=== PATIENT | female | born 1985 | race Caucasian/White ===

== ENCOUNTER 2023-10-11 13:04 | Inpatient (IN) | payer OTHER ==
[2023-10-11 14:24] VITALS: BMI 24.3
[2023-10-11] MEDS ORDERED: NICOTINE POLACRILEX 2 MG GUM BUC PRN (14:50)
[2023-10-11] MEDS ORDERED: BENZONATATE 200 MG CAPSULE PO PRN (14:50)
[2023-10-11] MEDS ORDERED: DICYCLOMINE HCL 10 MG CAPSULE PO PRN (14:50)
[2023-10-11] MEDS ORDERED: ACETAMINOPHEN 325 MG TABLET (FP) PO PRN (14:50)
[2023-10-11] MEDS ORDERED: LOPERAMIDE HCL 2 MG CAPSULE PO PRN (14:50)
[2023-10-11] MEDS ORDERED: BISMUTH SUBSALICYLATE 524 MG/30 ML PO PRN (14:50)
[2023-10-11] MEDS ORDERED: IBUPROFEN 400 MG TABLET (FP) PO PRN (14:50)
[2023-10-11] MEDS ORDERED: P-EPHED 60MG/TRIPROLIDI 2.5MG TABLET PO PRN (14:50)
[2023-10-11] MEDS ORDERED: guaiFENesin 600 MG TABLET.ER (FP) PO PRN (14:50)
[2023-10-11] MEDS ORDERED: MAGNESIUM HYDROX 2400MG/30ML ORAL SUSPENSION 30 ML CUP PO PRN (14:50)
[2023-10-11] MEDS ORDERED: BENZOCAINE/MENTHOL (CHLORASEPTIC ) LOZENGE MM PRN (14:50)
[2023-10-11] MEDS ORDERED: POLYETHYLENE GLYCOL (HEALTHYLAX) 3350 17 GM PACKET PO PRN (14:50)
[2023-10-11] MEDS ORDERED: NICOTINE POLACRILEX 2 MG LOZENGE BC PRN (14:50)
[2023-10-11] MEDS ORDERED: MAG HYDROX/AL HYDROX/SIMETH 30 ML UNIT-DOSE CUP PO PRN (14:50)
[2023-10-11] MEDS: chlordiazePOXIDE HCL 25 MG CAPSULE PO SCH (17:05)
[2023-10-11] MEDS: THIAMINE 100 MG TABLET PO SCH (22:34)
[2023-10-11] MEDS: MELATONIN 5 MG TABLETS PO SCH (22:34)
[2023-10-12] MEDS: chlordiazePOXIDE HCL 25 MG CAPSULE PO SCH (05:53)
[2023-10-12] MEDS: PRENATAL VITAMINS W/ FOLIC ACID TABLET (FP) PO SCH (10:05)
[2023-10-12] MEDS ORDERED: PATIENT'S OWN MEDICATION (NON-FORMULARY) (Lamotrigine [Lamotrigine] 150 MG Tablet) PO SCH (11:30)
[2023-10-12 12:03] LABS: HEMATOCRIT 39.8 % (32.4-45.2); HEMOGLOBIN 13.3 GM/dL (10.7-15.3); MCH 31.9 pg (25.7-33.7); MCHC 33.5 g/dl (32.0-36.0); MEAN CELL VOLUME 95.2 fl (80-96); MEAN PLT VOLUME 7.8 fl (7.5-11.1); PLATELET COUNT 224 10^3/uL (134-434); RBC 4.18 M/mm3 (3.60-5.2); RDW 13.5 % (11.6-15.6); WHITE BLOOD COUNT 7.2 K/mm3 (4.0-10.0)
[2023-10-12] MEDS: busPIRone HCL 10 MG TABLET (FP) PO SCH (12:16)
[2023-10-12] MEDS: LAMOTRIGINE PO SCH (12:16)
[2023-10-12 12:20] LABS: CHLORIDE 106 mmol/L (98-107); POTASSIUM 4.2 mmol/L (3.5-5.1); SODIUM 140 mmol/L (136-145)
[2023-10-12 12:31] LABS: GLUCOSE,RANDOM 95 mg/dL (74-106)
[2023-10-12 12:32] LABS: ALBUMIN 3.5 g/dl (3.4-5.0); ANION GAP 6 mmol/L (4-13); CALCIUM 8.9 mg/dL (8.5-10.1); CO2 28 mmol/L (21-32)
[2023-10-12 12:35] LABS: CREATININE 0.7 mg/dL (0.55-1.3); SGOT/AST 14 U/L (15-37); SGPT/ALT 18 U/L (13-61)
[2023-10-12 12:37] LABS: BILIRUBIN,TOTAL 0.8 mg/dL (0.2-1); TOT PROT 6.6 g/dl (6.4-8.2)
[2023-10-12 12:38] LABS: ALK PHOS 54 U/L (45-117)
[2023-10-12] MEDS: chlordiazePOXIDE HCL 25 MG CAPSULE PO PRN (20:17)
[2023-10-12] MEDS: METHOCARBAMOL 500 MG TABLET PO PRN (22:26)
[2023-10-12] MEDS: IBUPROFEN 600 MG TABLET (FP) PO PRN (23:00)
[2023-10-13] MEDS ORDERED: chlordiazePOXIDE HCL 10 MG CAPSULE PO PRN
[2023-10-13] MEDS: chlordiazePOXIDE HCL 10 MG CAPSULE PO SCH (05:36)
[2023-10-13] MEDS: GABAPENTIN 100 MG CAPSULE PO SCH (13:28)
[2023-10-14] MEDS: chlordiazePOXIDE HCL 10 MG CAPSULE PO SCH (05:54)
[2023-10-14 09:53] VITALS: BP 117/68; PULSE 63; RESP 16; TEMP 97.8
[2023-10-14] MEDS: GABAPENTIN 100 MG CAPSULE PO SCH (11:59)
[2023-10-15] MEDS ORDERED: chlordiazePOXIDE HCL 10 MG CAPSULE PO ONE (05:00)
== END 2023-10-14 13:06 | disposition other institution (70) | DRG 774 ==
LOC: YASAS 13:04 → Y6N 15:10
PROVIDERS: ADMIT Allergy & Immunology; ATTEND Surgery
PROC: HZ2ZZZZ Detoxification Services for Substance Abuse Treatment (ICD-10-PCS; principal; 2023-10-11)
DX: F10.230 Alcohol dependence with withdrawal, uncomplicated (principal); F14.20 Cocaine dependence, uncomplicated; F17.210 Nicotine dependence, cigarettes, uncomplicated; F12.20 Cannabis dependence, uncomplicated; F31.81 Bipolar II disorder; F41.9 Anxiety disorder, unspecified; Z86.79 Personal history of other diseases of the circulatory system; Z95.810 Presence of automatic (implantable) cardiac defibrillator
CPT/HCPCS: 36415; 80053; 80305; 80307; 81025; 85027; 86780; 93005; 93010